=== PATIENT | female | born 2000 ===

== ENCOUNTER 2025-07-09 09:21 | Outpatient (AMB) | payer MEDICAID, SELFPAY ==
--- NOTE | 2025-07-09 09:28 | OBCLNT_ITS ---
Vital Signs 07/09/25 09:40 Height 1.65 m Height Method Stated Weight 67.132 kg Weight Measurement Method Standing Scale BMI 24.6 BP 119/76 Blood Pressure Source Automatic Cuff Blood Pressure Location Left Upper Arm Position Sitting Respiration 16 Pulse 88 Pulse Source Monitor Temp 97.9 F Temp Source Oral Pulse Oximetry (%) 96 Oxygen Delivery Method Room Air Allergies/Home Meds Allergies & Medications Allergies No Known Allergies Allergy (Verified 07/09/25 09:42) Medication Reconciliation vitamin no.76-iron,carbonyl 29 mg iron-folic acid 1 mg tablet (PNV 29- 1) 1 tab PO QDAY 06/10/20 [History Confirmed 07/09/25] Intake Visit Data Collection New Patient or Established: New Patient not seen in past 3 years at [facility] (considered New) Reason for Visit:: INITIAL CARE Seen by Clinical Staff ONLY (RN/MA): No Special Education Paraprofessional Required: No Do You Feel Safe at Home: Yes Authorities Contacted: N/A PCP or OBGYN visit in last 3 months: Yes Hx Now: Yes Are you currently on any form of Control: No Last menstrual period: 12/03/24 Pain Present Currently: No Pain Scale Used: Mehta-Cast/Numerical Pain scale:: 0 Smoking Status Smoking Status: Never smoker Questionnaires Covid-19 Vaccine Questionnaire Has patient been vacinated for Covid-19 Have you been vacinated for Covid-19: Yes PHQ-9 PHQ-2 Over the last 2 weeks, how often have you been bothered by any of the following problems? 1. Little interest or pleasure in doing things: not at all 2. Feeling down, depressed, or hopeless: not at all Total score: 0 PHQ-9 3. Trouble falling or staying asleep, or sleeping too much: Not at all 4. Feeling tired or having little energy: Not at all 5. Poor appetite or overeating: Not at all 6. Feeling bad about yourself - or that you are a failure or have let yourself or your family down: Not at all 7. Trouble concentrating on things, such as reading the newspaper or watching television: Not at all 8. Moving or speaking so slowly that other people could have noticed? - Or the opposite - being so fidgety or restless that you have been moving around a lot more than usual: not at all 9. Thoughts that you would be better off or of hurting yourself in some way: Not at all Total score: 0 Source: Developed by Drs. Hubert Medina, Elvira Forbes, Arsenio Robles and colleagues, with an educational loyd from [employer]. Depression screen completed yes Social History Living Situation History Marital Status: Single Lives With: Family Housing: House Tobacco History Smoking Status: Never smoker Second Hand Smoke Exposure: No Alcohol History Alcohol Intake: Former Alcohol Intake Frequency: holidays/special occasions only Domestic Abuse History Do You Feel Safe at Home: Yes History of Present Illness HPI Narrative 24-year-old 2 para 1 for OBI. Patient has had several ultrasounds in [place] otherwise no care. Her last period December 05, 2024. This gives due date September 11, 2025. Patient reports her dates. Good movement. Denies leaking, bleeding, contractions, patient has had no problems with the . She denies any existence of chronic illness. Denies any surgeries. Denies social habits. She had her first baby in 2019 a little girl normal no problems. 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 Patient is very happy about the . She has had a couple ultrasounds in [place] otherwise no care. Denies leaking, bleeding, contractions. Reports good movement. She has had no problems with . Her the father of the baby lives in [place] Schedule maternal- medicine appointment. OB panel with third trimester labs. NIPT. Discussed labor precautions. Increase fluids. Continue prenatals. And return in 2 weeks for OB check. Tdap today Menstrual History Menstrual reliability: definite Flow: normal Menstrual regularity: regular Monthly: Yes Age at menarche: 9 On control pills at conception: No Associated symptoms (LMP): Reports fatigue and breast tenderness OB History : 2 Para: 1 # of Living Children: 1 Delivery History 1st : Child's name: ZOLTAN date: 08/02/20 sex: female Gestational age at delivery (weeks): 40 Delivery type: vaginal Delivery complications: NONE History of depression before or after : No Infection History & Risk Evaluation History of STDs: none Genetic Screening & History Genetic Screening/Teratology Counseling - Includes patient, baby's father, or anyone in either family with: 1. Patient's age 35 years or older as of estimated date of delivery: No 2. Thalassemia (Belarusian, Algerian, Mediterranean, or Background); MCV less than 80: No 3. Neural Tube Defect (Meningomyelocele, Spina Bifida, or Anencephaly): No 4. Congenital Heart Defect: No 5. Down Syndrome: No 6. Gab-Sachs (Ashkenazi Catholic, Cajun, Arabic [place]kn[place]): No 7. Zully Disease (Ashkenazi Catholic): No 8. Familial Dysautonomia (Ashkenazi Catholic): No 9. Sickle Cell Disease or Trait (): No 10. Hemophilia or other blood disorders: No 11. Muscular Dystrophy: No 12. Cystic Fibrosis: No 13. Hart's Chorea: No 14. Mental Retardation/Autism: No 15. Other inherited genetic or chromosomal disorder: No 16. Maternal Metabolic Disorder (EG,TYPE 1 Diabetes, PKU): No 17. Patient or baby's father had a child with defects not listed above: No 18. Recurrent loss or a stillbirth: No 19. Medications (including supplements, vitamins, herbs or otc drugs)/illicit/recreational drugs/alcohol since last menstrual period: No 20. Any other: No Infection History 1. Live with someone with TB or exposed to TB: No 2. Rash or viral illness since last menstrual period: No 3. Hepatitis B,C: No Other (see comments) Source: [employer] Review of Systems Review of Systems Systems Reviewed: All systems reviewed, normal except as documented Constitutional Constitutional: Reports fatigue Endocrine Endocrine: Reports fatigue Exam General Limitations: no limitations General Appearance: alert, in no apparent distress, comfortable, cooperative, healthy appearing, well developed and well groomed Head Head exam: atraumatic, normocephalic and normal inspection Resp Respiratory exam: Present normal lung sounds bilaterally Card Cardiovascular exam: Present regular rate, normal rhythm and normal heart sounds Abdominal Abdominal exam: Present soft and normal bowel sounds Extremities Extremities exam: Present normal inspection and full ROM Psych Psychiatric exam: Present normal affect and normal mood Office Procedures OB Clinic LOC & Office Proc's Nursing/Assessment Patient Status: Established Patient OB Clinic Nursing Assessment: Medication Reconciliation, Update PMH in EMR and Vital Signs OB Clinic Coordination of Care: Complex Care and Chronic Disease 1-5, Consent,records obtained, informed consent, Education Simp Pt/Fam, 1 Ins Authorization, Lab and Imaging orders, Results/Orders obtained and Staff clarify orders Special Needs: Heart tones Established Patient Charge Established Patient Point Assignment: 150 Established Patient Point Charge: EP Level 4 (120-155) Immunizations diphth,pertus(acell),tetanus 2.5 Lf unit-8 mcg-5 Lf/0.5mL IM syringe Performing Provider: Kasandra Zamarripa CNM Performing Location: [facility] Administered by: Tashia Hou MA on 07/09/25 10:26 Dose Route Admin Location Dispensed Lot Number Expiration Date Pack age [facility] Litigation Associate 0.5 mL IM Left Deltoid 0.5 mL [id number] 08/29/27 [id number] No [employer] VIS Given Date VIS Provided VIS Publication Date 07/09/25 Single Vaccine 25 Eligibility Eligibility Date Funding Source Public [facility] Assessment & Plan Diagnosis / Problem List (1) Encounter for supervision of high risk in third trimester, antepartum: Status: Acute Plan OB panel with 1 hour GTT and NIPT and carrier screens. Schedule maternal- medicine sono. Discussed labor precautions continue vitamins. Return in 2 weeks OB check. Tdap Additional Plan Follow Up: 2 Weeks (obc)
[2025-07-09 09:40] VITALS: BP 119/76; PULSE 88; RESP 16; TEMP 36.6; O2SAT 96; BMI 24.6
== END 2025-07-09 10:13 | disposition home or self-care (01) ==
LOC: HODSOBC 09:21
PROVIDERS: PCP Obstetrics & Gynecology; Referring Provider Obstetrics & Gynecology; Supervising Provider Advanced Practice Midwife; Visit Provider Advanced Practice Midwife
DX: O09.93 Supervision of high risk pregnancy, unspecified, third trimester (principal); Z3A.30 30 weeks gestation of pregnancy; Z23 Encounter for immunization
CPT/HCPCS: 90471; 90715; 99214; G0463

== ENCOUNTER 2025-07-23 10:17 | Outpatient (AMB) | payer MEDICAID, SELFPAY ==
[2025-07-23 10:30] VITALS: BP 117/72; PULSE 91; RESP 18; TEMP 36.5; O2SAT 97; BMI 24.7
--- NOTE | 2025-07-23 10:30 | OBCLNT_ITS ---
Vital Signs 07/23/25 10:30 Height 1.65 m Height Method Measured Weight 67.188 kg Weight Measurement Method Standing Scale BMI 24.7 BP 117/72 Blood Pressure Source Automatic Cuff Blood Pressure Location Right Upper Arm Position Sitting Respiration 18 Pulse 91 Pulse Source Monitor Temp 97.7 F Temp Source Temporal Artery Scan Pulse Oximetry (%) 97 Oxygen Delivery Method Room Air Allergies/Home Meds Allergies & Medications Allergies No Known Allergies Allergy (Verified 07/09/25 09:42) Intake Visit Data Collection New Patient or Established: Established Patient (seen at [facility] within 3 years) Reason for Visit:: OBC FOLLOW UP Do You Feel Safe at Home: Yes Authorities Contacted: N/A PCP or OBGYN visit in last 3 months: Yes Date of Last PCP or OBGYN visit: 07/09/25 Hx Now: Yes Are you currently on any form of Control: No Pain Present Currently: No Smoking Status Smoking Status: Never smoker Questionnaires PHQ-9 PHQ-2 Over the last 2 weeks, how often have you been bothered by any of the following problems? 1. Little interest or pleasure in doing things: not at all PHQ-9 8. Moving or speaking so slowly that other people could have noticed? - Or the opposite - being so fidgety or restless that you have been moving around a lot more than usual: not at all Source: Developed by Drs. Hubert Medina, Elvira Forbes, Arsenio Robles and colleagues, with an educational loyd from [employer]. 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 Patient is very happy about the . She has had a couple ultrasounds in [place] otherwise no care. Denies leaking, bleeding, contractions. Reports good movement. She has had no problems with . Her the father of the baby lives in [place] Schedule maternal- medicine appointment. OB panel with third trimester labs. NIPT. Discussed labor precautions. Increase fluids. Continue prenatals. And return in 2 weeks for OB check. Tdap today 07/23/25 -?-?-?-?-?-?-?-?-?-?-?-?- 32w 6d 67.188 kg 117/72 absent cephalic 32 135 active No OB complaints, fetus active, denies leaking, bleeding,or UC FKC bid, discuss labs. discuss PTL precaution. continue PNV. RTC 2 week OBC. MFM appointment in 1 week, order iron for patient JHONNY Calculator Estimated Delivery Date Method Current WG Current Estimate 09/11/25 LMP (Certain) 32w 6d Other Estimates 09/09/25 Ultrasound #1 33w 1d Notes Visit Date: 07/23/25 Last Updated by: Kasandra Zamarripa CNM OB panel: A+,abs-, rpr;;nr, rub Imm, HBSAG-, HIV-, HC- GC/CT-, 08/30, 226, UA-. NIPT/CF/SMA pending Visit Date: 07/09/25 Last Updated by: Kasandra Zamarripa CNM 24 yo . lmp: 12/05/24. EDC: 09/11/25. 1st sono: 02/02/25: 8w5. EDC: 09/12/25 Office Procedures OB Clinic LOC & Office Proc's Nursing/Assessment Patient Status: Established Patient OB Clinic Nursing Assessment: Medication Reconciliation, Update PMH in EMR and Vital Signs OB Clinic Coordination of Care: Complex Care and Chronic Disease 1-5, Education Complex Pt/Fam, Consent,records obtained, informed consent, Lab and Imaging orders and Results/Orders obtained Special Needs: Heart tones Established Patient Charge Established Patient Point Assignment: 130 Established Patient Point Charge: EP Level 4 (120-155) Assessment & Plan Diagnosis / Problem List (1) Encounter for supervision of high risk in third trimester, antepartum: Status: Acute Plan MFM sono 1 week, discuss PTL precaution, fkc bid. continue PNV. discuss ER precaution, rtc 1 week obc Additional Plan Follow Up: 1 Week (obc)
== END 2025-07-23 10:54 | disposition home or self-care (01) ==
LOC: HODSOBC 10:17
PROVIDERS: Supervising Provider Advanced Practice Midwife; Visit Provider Advanced Practice Midwife
DX: O09.93 Supervision of high risk pregnancy, unspecified, third trimester (principal); Z3A.32 32 weeks gestation of pregnancy
CPT/HCPCS: 99214; G0463

== ENCOUNTER 2025-08-07 11:08 | Outpatient (AMB) | payer MEDICAID, SELFPAY ==
[2025-08-07 11:17] VITALS: BP 113/68; PULSE 89; RESP 16; TEMP 36.6; O2SAT 98; BMI 24.3
--- NOTE | 2025-08-07 11:17 | AMB.OBVISIT ---
Vital Signs 08/07/25 11:17 Height 1.65 m Height Method Stated Weight 66.338 kg Weight Measurement Method Standing Scale BMI 24.3 BP 113/68 Blood Pressure Source Automatic Cuff Blood Pressure Location Left Upper Arm Position Sitting Respiration 16 Pulse 89 Pulse Source Monitor Temp 97.8 F Temp Source Oral Pulse Oximetry (%) 98 Oxygen Delivery Method Room Air Allergies/Home Meds Allergies & Medications Allergies No Known Allergies Allergy (Verified 08/07/25 11:21) Medication Reconciliation vitamin no.76-iron,carbonyl 29 mg iron-folic acid 1 mg tablet (PNV 29-1) 1 tab PO QDAY 06/10/20 [History Confirmed 08/07/25] ferrous sulfate 325 mg (65 mg iron) tablet 325 mg PO BID #60 tabs 07/23/25 [Rx Confirmed 08/07/25] clotrimazole 2 % vaginal cream (Gyne-Lotrimin) 1 appful vaginal QHS 7 days #21 grams 08/07/25 [Rx] fluconazole 150 mg tablet 150 mg PO QDAY 3 days #3 tabs 08/07/25 [Rx] Intake Visit Data Collection New Patient or Established: Established Patient (seen at [facility] within 3 years) Reason for Visit:: CARE Seen by Clinical Staff ONLY (RN/MA): No Environmental Services Tech Required: No Do You Feel Safe at Home: Yes Authorities Contacted: N/A PCP or OBGYN visit in last 3 months: Yes Hx Now: Yes Are you currently on any form of Control: No Pain Present Currently: No Pain Scale Used: Mehta-Cast/Numerical Pain scale:: 0 Smoking Status Smoking Status: Never smoker Questionnaires Covid-19 Vaccine Questionnaire Has patient been vacinated for Covid-19 Have you been vacinated for Covid-19: No PHQ-9 PHQ-2 Over the last 2 weeks, how often have you been bothered by any of the following problems? 1. Little interest or pleasure in doing things: not at all 2. Feeling down, depressed, or hopeless: not at all Total score: 0 PHQ-9 3. Trouble falling or staying asleep, or sleeping too much: Not at all 4. Feeling tired or having little energy: Not at all 5. Poor appetite or overeating: Not at all 6. Feeling bad about yourself - or that you are a failure or have let yourself or your family down: Not at all 7. Trouble concentrating on things, such as reading the newspaper or watching television: Not at all 8. Moving or speaking so slowly that other people could have noticed? - Or the opposite - being so fidgety or restless that you have been moving around a lot more than usual: not at all 9. Thoughts that you would be better off or of hurting yourself in some way: Not at all Total score: 0 Source: Developed by Drs. Hubert Medina, Elvira Forbes, Arsenio Robles and colleagues, with an educational loyd from [employer]. 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 Patient is very happy about the . She has had a couple ultrasounds in [place] otherwise no care. Denies leaking, bleeding, contractions. Reports good movement. She has had no problems with . Her the father of the baby lives in [place] Schedule maternal- medicine appointment. OB panel with third trimester labs. NIPT. Discussed labor precautions. Increase fluids. Continue prenatals. And return in 2 weeks for OB check. Tdap today 07/23/25 <del>?</del> 32w 6d 67.188 kg 117/72 absent cephalic 32 135 active No OB complaints, fetus active, denies leaking, bleeding,or UC FKC bid, discuss labs. discuss PTL precaution. continue PNV. RTC 2 week OBC. MFM appointment in 1 week, order iron for patient 08/07/25 <del>?</del> 35w 0d 66.338 kg 113/68 absent cephalic 35 135 active Reports good movement. Denies leaking, bleeding, contractions. Perineal area is red and the vagina was red and white clumpy discharge. GBS culture today. Diflucan 151 p.o. Q3. 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 Discussed labor precautions and kick count. And we discussed membrane sweeping at 39 weeks return in a week for OB check JHONNY Calculator Estimated Delivery Date Method Current WG Current Estimate 09/11/25 LMP (Certain) 35w 0d Other Estimates 09/09/25 Ultrasound #1 35w 2d Notes Visit Date: 07/23/25 Last Updated by: Kasandra Zamarripa CNM OB panel: A+,abs-, rpr;;nr, rub Imm, HBSAG-, HIV-, HC- GC/CT-, 08/30, 226, UA-. NIPT/CF/SMA pending Visit Date: 07/09/25 Last Updated by: Kasandra Zamarripa CNM 24 yo . lmp: 12/05/24. EDC: 09/11/25. 1st sono: 02/02/25: 8w5. EDC: 09/12/25 Office Procedures OBC Clinic LOC & Office Proc's Nursing/Assessment Patient Status: Established Patient OB Clinic Nursing Assessment: Medication Reconciliation, Update PMH in EMR and Vital Signs OB Clinic Coordination of Care: Complex Care and Chronic Disease 1-5, Consent,records obtained, informed consent, Education Simp Pt/Fam, 1 Ins Authorization, Lab and Imaging orders, Results/Orders obtained and Staff clarify orders Special Needs: Heart tones Miscellaneous Interventions: Culture Specimen Collection Established Patient Charge Established Patient Point Assignment: 165 Established Patient Point Charge: EP Level 5 (160-above) Assessment & Plan Diagnosis / Problem List (1) Encounter for supervision of high risk in third trimester, antepartum: Status: Acute (2) Vaginitis affecting in third trimester, antepartum: Status: Acute Plan 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 I ordered Diflucan 150 p.o. x 3. GBS today. Comfort measures for vaginitis. Discussed kick count twice a day. We discussed membrane sweep at 39 weeks. Increase fluids. Return in a week OB check Additional Plan Follow Up: 1 Week (obc)
== END 2025-08-07 11:40 | disposition home or self-care (01) ==
LOC: HODSOBC 11:08
PROVIDERS: Supervising Provider Advanced Practice Midwife; Visit Provider Advanced Practice Midwife
DX: O09.893 Supervision of other high risk pregnancies, third trimester (principal); O23.593 Infection of other part of genital tract in pregnancy, third trimester; N76.0 Acute vaginitis; Z3A.35 35 weeks gestation of pregnancy
CPT/HCPCS: 99215; G0463

== ENCOUNTER 2025-08-13 13:02 | Outpatient (AMB) | payer MEDICAID, SELFPAY ==
[2025-08-13 13:15] VITALS: BP 107/70; PULSE 87; RESP 18; TEMP 36.2; O2SAT 98; BMI 24.5
--- NOTE | 2025-08-13 13:15 | OBCLNT_ITS ---
Vital Signs 08/13/25 13:15 Height 1.65 m Height Method Stated Weight 66.848 kg Weight Measurement Method Standing Scale BMI 24.5 BP 107/70 Blood Pressure Source Automatic Cuff Blood Pressure Location Left Upper Arm Position Sitting Respiration 18 Pulse 87 Pulse Source Monitor Temp 97.2 F Temp Source Oral Pulse Oximetry (%) 98 Oxygen Delivery Method Room Air Allergies/Home Meds Allergies & Medications Allergies No Known Allergies Allergy (Verified 08/13/25 13:16) Medication Reconciliation vitamin no.76-iron,carbonyl 29 mg iron-folic acid 1 mg tablet (PNV 29- 1) 1 tab PO QDAY 06/10/20 [History Confirmed 08/13/25] ferrous sulfate 325 mg (65 mg iron) tablet 325 mg PO BID #60 tabs 07/23/25 [Rx Confirmed 08/13/25] clotrimazole 2 % vaginal cream (Gyne-Lotrimin) 1 appful vaginal QHS 7 days #21 grams 08/07/25 [Rx Confirmed 08/13/25] Intake Visit Data Collection New Patient or Established: Established Patient (seen at [facility] within 3 years) Reason for Visit:: OBC Seen by Clinical Staff ONLY (RN/MA): No Bag Filler Required: No Do You Feel Safe at Home: Yes Authorities Contacted: N/A PCP or OBGYN visit in last 3 months: Yes Date of Last PCP or OBGYN visit: 08/07/25 Hx Now: Yes Are you currently on any form of Control: No Pain Present Currently: No Pain Scale Used: Mehta-Cast/Numerical Pain scale:: 0 Smoking Status Smoking Status: Never smoker Questionnaires Covid-19 Vaccine Questionnaire Has patient been vacinated for Covid-19 Have you been vacinated for Covid-19: Yes PHQ-9 PHQ-2 Over the last 2 weeks, how often have you been bothered by any of the following problems? 1. Little interest or pleasure in doing things: not at all 2. Feeling down, depressed, or hopeless: not at all Total score: 0 PHQ-9 3. Trouble falling or staying asleep, or sleeping too much: Not at all 4. Feeling tired or having little energy: Not at all 5. Poor appetite or overeating: Not at all 6. Feeling bad about yourself - or that you are a failure or have let yourself or your family down: Not at all 7. Trouble concentrating on things, such as reading the newspaper or watching television: Not at all 8. Moving or speaking so slowly that other people could have noticed? - Or the opposite - being so fidgety or restless that you have been moving around a lot more than usual: not at all 9. Thoughts that you would be better off or of hurting yourself in some way: Not at all Total score: 0 If you checked off any problems, how difficult have these problems made it for you to do your work, take care of things at home, or get along with other people?: not difficult at all Source: Developed by Drs. Hubert Medina, Elvira Forbes, Arsenio Robles and colleagues, with an educational loyd from [employer]. 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 Patient is very happy about the . She has had a couple ultrasounds in [place] otherwise no care. Denies leaking, bleeding, contractions. Reports good movement. She has had no problems with . Her the father of the baby lives in [place] Schedule maternal- medicine appointment. OB panel with third trimester labs. NIPT. Discussed labor precautions. Increase fluids. Continue prenatals. And return in 2 weeks for OB check. Tdap today 07/23/25 -?-?-?-?-?-?-?-?-?-?-?-?- 32w 6d 67.188 kg 117/72 absent cephalic 32 135 active No OB complaints, fetus active, denies leaking, bleeding,or UC FKC bid, discuss labs. discuss PTL precaution. continue PNV. RTC 2 week OBC. MFM appointment in 1 week, order iron for patient 08/07/25 -?-?-?-?-?-?-?-?-?-?-?-?- 35w 0d 66.338 kg 113/68 absent cephalic 35 135 active Reports good movement. Denies leaking, bleeding, contractions. Perineal area is red and the vagina was red and white clumpy discharge. GBS culture today. Diflucan 151 p.o. Q3. CERTIFIED HISTOLOGIC TECHNICIAN Lotrimin x 7 to the external labia. Discussed labor precautions and kick count. And we discussed membrane sweeping at 39 weeks return in a week for OB check 08/13/25 -?-?-?-?-?-?-?-?-?-?-?-?- 35w 6d 66.848 kg 107/70 absent cephalic 35 125 active Reports good movement. Denies leaking, bleeding, contractions. This kick count twice a day. Reviewed labor precautions. Continue prenatals. Discussed GBS. Return in a week OB check JHONNY Calculator Estimated Delivery Date Method Current WG Current Estimate 09/11/25 LMP (Certain) 35w 6d Other Estimates 09/09/25 Ultrasound #1 36w 1d 09/11/25 Ultrasound #2 35w 6d 09/11/25 Manual 35w 6d final jhonny: 08/31 12/25. efw 44 % Notes Visit Date: 08/13/25 Last Updated by: Kasandra Zamarripa CNM 08/13: GBS- Visit Date: 07/23/25 Last Updated by: Kasandra Zamarripa CNM OB panel: A+,abs-, rpr;;nr, rub Imm, HBSAG-, HIV-, HC- GC/CT-, 08/30, 226, UA-. NIPT/CF/SMA pending Visit Date: 07/09/25 Last Updated by: Kasandra Zamarripa CNM 24 yo . lmp: 12/05/24. EDC: 09/11/25. 1st sono: 02/02/25: 8w5. EDC: 09/12/25 Office Procedures OBC Clinic LOC & Office Proc's Nursing/Assessment Patient Status: Established Patient OB Clinic Nursing Assessment: Medication Reconciliation, Update PMH in EMR and Vital Signs OB Clinic Coordination of Care: Consent,records obtained, informed consent, Education Simp Pt/Fam, Lab and Imaging orders, Results/Orders obtained and Staff clarify orders Special Needs: Heart tones Established Patient Charge Established Patient Point Assignment: 110 Established Patient Point Charge: EP Level 3 (80-115) Assessment & Plan Diagnosis / Problem List (1) Encounter for supervision of high risk in third trimester, antepartum: Status: Acute Plan Discussed kick count twice a day. Discussed labor precautions. Continue prenatals. Return in a week OB check Additional Plan Follow Up: 1 Week (obc)
== END 2025-08-13 13:30 | disposition home or self-care (01) ==
LOC: HODSOBC 13:02
PROVIDERS: Supervising Provider Advanced Practice Midwife; Visit Provider Advanced Practice Midwife
DX: O09.93 Supervision of high risk pregnancy, unspecified, third trimester (principal); Z3A.35 35 weeks gestation of pregnancy
CPT/HCPCS: 99213; G0463

== ENCOUNTER 2025-08-23 13:25 | Outpatient (AMB) | payer MEDICAID, SELFPAY ==
[2025-08-23 13:47] VITALS: BP 113/64; PULSE 95; RESP 18; TEMP 36.2; O2SAT 98; BMI 25.2
--- NOTE | 2025-08-23 13:47 | OBCLNT_ITS ---
Vital Signs 08/23/25 13:47 Height 1.65 m Height Method Stated Weight 68.606 kg Weight Measurement Method Standing Scale BMI 25.2 BP 113/64 Blood Pressure Source Automatic Cuff Blood Pressure Location Left Upper Arm Position Sitting Respiration 18 Pulse 95 Pulse Source Monitor Temp 97.2 F Temp Source Oral Pulse Oximetry (%) 98 Oxygen Delivery Method Room Air Allergies/Home Meds Allergies & Medications Allergies No Known Allergies Allergy (Verified 08/23/25 13:48) Medication Reconciliation vitamin no.76-iron,carbonyl 29 mg iron-folic acid 1 mg tablet (PNV 29- 1) 1 tab PO QDAY 06/10/20 [History Confirmed 08/23/25] ferrous sulfate 325 mg (65 mg iron) tablet 325 mg PO BID #60 tabs 07/23/25 [Rx Confirmed 08/23/25] clotrimazole 2 % vaginal cream (Gyne-Lotrimin) 1 appful vaginal QHS 7 days #21 grams 08/07/25 [Rx Confirmed 08/23/25] Intake Visit Data Collection New Patient or Established: Established Patient (seen at [facility] within 3 years) Reason for Visit:: OBC Seen by Clinical Staff ONLY (RN/MA): No Aircraft Accessories Mechanic Required: No Do You Feel Safe at Home: Yes Authorities Contacted: N/A PCP or OBGYN visit in last 3 months: Yes Date of Last PCP or OBGYN visit: 08/12/25 Hx Now: Yes Are you currently on any form of Control: No Pain Present Currently: No Pain Scale Used: Mehta-Cast/Numerical Pain scale:: 0 Smoking Status Smoking Status: Never smoker Immunizations Flu Vaccine in the Last 12 Months: No Flu Vaccine Exclusion Criteria: Refused by Patient Questionnaires Covid-19 Vaccine Questionnaire Has patient been vacinated for Covid-19 Have you been vacinated for Covid-19: No PHQ-9 PHQ-2 Over the last 2 weeks, how often have you been bothered by any of the following problems? 1. Little interest or pleasure in doing things: not at all 2. Feeling down, depressed, or hopeless: not at all Total score: 0 PHQ-9 3. Trouble falling or staying asleep, or sleeping too much: Not at all 4. Feeling tired or having little energy: Not at all 5. Poor appetite or overeating: Not at all 6. Feeling bad about yourself - or that you are a failure or have let yourself or your family down: Not at all 7. Trouble concentrating on things, such as reading the newspaper or watching television: Not at all 8. Moving or speaking so slowly that other people could have noticed? - Or the opposite - being so fidgety or restless that you have been moving around a lot more than usual: not at all 9. Thoughts that you would be better off or of hurting yourself in some way: Not at all Total score: 0 If you checked off any problems, how difficult have these problems made it for you to do your work, take care of things at home, or get along with other people?: not difficult at all Source: Developed by Drs. Hubert Medina, Elvira Forbes, Arsenio Robles and colleagues, with an educational loyd from [employer]. 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 Patient is very happy about the . She has had a couple ultrasounds in [place] otherwise no care. Denies leaking, bleeding, contractions. Reports good movement. She has had no problems with . Her the father of the baby lives in [place] Schedule maternal- medicine appointment. OB panel with third trimester labs. NIPT. Discussed labor precautions. Increase fluids. Continue prenatals. And return in 2 weeks for OB check. Tdap today 07/23/25 -?-?-?-?-?-?-?-?-?-?-?-?- 32w 6d 67.188 kg 117/72 absent cephalic 32 135 active No OB complaints, fet us active, denies leaking, bleeding,or UC FKC bid, discuss labs. discuss PTL precaution. continue PNV. RTC 2 week OBC. MFM appointment in 1 week, order iron for patient 08/07/25 -?--?-?-?-?-?-?-?-?-?-?-?- 35w 0d 66.338 kg 113/68 absent cephalic 35 135 active Reports good movement. Denies leaking, bleeding, contractions. Perineal area is red and the vagina was red and white clumpy discharge. GBS culture today. Diflucan 151 p.o. Q3. 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 Discussed labor precautions and kick count. And we discussed membrane sweeping at 39 weeks return in a week for OB check 08/13/25 -?-?-?-?-?-?-?-?-?-?-?-?- 35w 6d 66.848 kg 107/70 absent cephalic 35 125 active Reports good movement. Denies leaking, bleeding, contractions. This kick count twice a day. Reviewed labor precautions. Continue prenatals. Discussed GBS. Return in a week OB check 08/23/25 -?-?-?-?-?-?-?-?-?-?-?-?- 37w 2d 68.606 kg 113/64 absent cephalic 36 123 active -3 sve: L/high/ medium. Occasional contraction. Denies leaking or bleeding. Reports good movement Discussed GBS. Labor precautions twice a day. Discussed kick count. Increase fluids continue prenatals return in a week OB check JHONNY Calculator Estimated Delivery Date Method Current WG Current Estimate 09/11/25 LMP (Certain) 37w 2d Other Estimates 09/09/25 Ultrasound #1 37w 4d 09/11/25 Ultrasound #2 37w 2d 09/11/25 Manual 37w 2d final jhonny: 08/31 12/25. efw 44 % Notes Visit Date: 08/13/25 Last Updated by: Kasandra Zamarripa CNM 08/13: GBS- Visit Date: 07/23/25 Last Updated by: Kasandra Zamarripa CNM OB panel: A+,abs-, rpr;;nr, rub Imm, HBSAG-, HIV-, HC- GC/CT-, 08/30, 226, UA-. NIPT/CF/SMA pending Visit Date: 07/09/25 Last Updated by: Kasandra Zamarripa CNM 24 yo . lmp: 12/05/24. EDC: 09/11/25. 1st sono: 02/02/25: 8w5. EDC: 09/12/25 Office Procedures OBC Clinic LOC & Office Proc's Nursing/Assessment Patient Status: Established Patient OB Clinic Nursing Assessment: Medication Reconciliation, Update PMH in EMR and Vital Signs OB Clinic Coordination of Care: Consent,records obtained, informed consent, Lab and Imaging orders, Results/Orders obtained and Staff clarify orders Special Needs: Heart tones Established Patient Charge Established Patient Point Assignment: 95 Established Patient Point Charge: EP Level 3 (80-115) Assessment & Plan Diagnosis / Problem List (1) Encounter for supervision of high risk in third trimester, antepartum: Status: Acute Plan Discussed labor precautions. Kick count twice a day. Increase fluids. Discussed danger signs and symptoms. Return in week OB check Additional Plan Follow Up: 1 Week (obc)
== END 2025-08-23 14:12 | disposition home or self-care (01) ==
LOC: HODSOBC 13:25
PROVIDERS: Supervising Provider Advanced Practice Midwife; Visit Provider Advanced Practice Midwife
DX: O09.93 Supervision of high risk pregnancy, unspecified, third trimester (principal); Z3A.37 37 weeks gestation of pregnancy
CPT/HCPCS: 99213; G0463

== ENCOUNTER 2025-08-30 13:13 | Outpatient (AMB) | payer MEDICAID, SELFPAY ==
[2025-08-30 13:20] VITALS: BP 117/75; PULSE 89; RESP 18; TEMP 36.7; O2SAT 896; BMI 25.2
--- NOTE | 2025-08-30 13:20 | OBCLNT_ITS ---
Vital Signs 08/30/25 13:20 Height 1.65 m Height Method Stated Weight 68.606 kg Weight Measurement Method Standing Scale BMI 25.2 BP 117/75 Blood Pressure Source Automatic Cuff Blood Pressure Location Right Upper Arm Position Sitting Respiration 18 Pulse 89 Pulse Source Monitor Temp 98.1 F Temp Source Temporal Artery Scan Pulse Oximetry (%) 896 H Oxygen Delivery Method Room Air Allergies/Home Meds Allergies & Medications Allergies No Known Allergies Allergy (Verified 08/30/25 13:21) Intake Visit Data Collection New Patient or Established: Established Patient (seen at [facility] within 3 years) Reason for Visit:: OBC Seen by Clinical Staff ONLY (RN/MA): No 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 Required: No Do You Feel Safe at Home: Yes Authorities Contacted: N/A PCP or OBGYN visit in last 3 months: Yes Date of Last PCP or OBGYN visit: 08/23/25 Hx Now: Yes Are you currently on any form of Control: No Pain Present Currently: No Pain Scale Used: Mehta-Cast/Numerical Pain scale:: 0 Smoking Status Smoking Status: Never smoker Immunizations Flu Vaccine in the Last 12 Months: No Flu Vaccine Exclusion Criteria: No Exclusion Criteria Questionnaires Covid-19 Vaccine Questionnaire Has patient been vacinated for Covid-19 Have you been vacinated for Covid-19: No PHQ-9 PHQ-2 Over the last 2 weeks, how often have you been bothered by any of the following problems? 1. Little interest or pleasure in doing things: not at all 2. Feeling down, depressed, or hopeless: not at all Total score: 0 PHQ-9 3. Trouble falling or staying asleep, or sleeping too much: Not at all 4. Feeling tired or having little energy: Not at all 5. Poor appetite or overeating: Not at all 6. Feeling bad about yourself - or that you are a failure or have let yourself or your family down: Not at all 7. Trouble concentrating on things, such as reading the newspaper or watching television: Not at all 8. Moving or speaking so slowly that other people could have noticed? - Or the opposite - being so fidgety or restless that you have been moving around a lot more than usual: not at all 9. Thoughts that you would be better off or of hurting yourself in some way: Not at all If you checked off any problems, how difficult have these problems made it for you to do your work, take care of things at home, or get along with other people?: not difficult at all Source: Developed by Drs. Hubert Medina, Elvira Forbes, Arsenio Robles and colleagues, with an educational loyd from [email or web address]. 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 Patient is very happy about the . She has had a couple ultrasounds in [place] otherwise no care. Denies leaking, bleeding, contractions. Reports good movement. She has had no problems with . Her the father of the baby lives in [place] Schedule maternal- medicine appointment. OB panel with third trimester labs. NIPT. Discussed labor precautions. Increase fluids. Continue prenatals. And return in 2 weeks for OB check. Tdap today 07/23/25 -?-?-?-?-?-?-?-?-?-?-?-?- 32w 6d 67.188 kg 117/72 absent cephalic 32 135 active No OB complaints, fetus active, denies leaking, bleeding,or UC FKC bid, discuss labs. discuss PTL precaution. continue PNV. RTC 2 week OBC. MFM appointment in 1 week, order iron for patient 08/07/25 -?-?-?-?-?-?-?-?-?-?-?-?- 35w 0d 66.338 kg 113/68 absent cephalic 35 135 active Reports good movement. Denies leaking, bleeding, contractions. Perineal area is red and the vagina was red and white clumpy discharge. GBS culture today. Diflucan 151 p.o. Q3. 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 Discussed labor precautions and kick count. And we discussed membrane sweeping at 39 weeks return in a week for OB check 08/13/25 -?-?-?-?-?-?-?-?-?-?-?-?- 35w 6d 66.848 kg 107/70 absent cephalic 35 125 active Reports good movement. Denies leaking, bleeding, contractions. This kick count twice a day. Reviewed labor precautions. Continue prenatals. Discussed GBS. Return in a week OB check 08/23/25 -?-?-?-?-?-?-?-?-?-?-?-?- 37w 2d 68.606 kg 113/64 absent cephalic 36 123 active -3 sve: L/high/ medium. Occasional contraction. Denies leaking or bleeding. Reports good movement Discussed GBS. Labor precautions twice a day. Discussed kick count. Increase fluids continue prenatals return in a week OB check 08/30/25 -?-?-?-?-?-?-?-?-?-?-?-?- 38w 2d 68.606 kg 117/75 occasional cephalic 37 135 active 1 -3 L/high/thick, soft. Reports good movement. Denies leaking, bleeding. Occasional contraction. And increased pressure Discussed labor precautions. Kick count twice a day. Reviewed signs and symptoms of labor and ER precautions. Return in a week OB check JHONNY Calculator Estimated Delivery Date Method Current WG Current Estimate 09/11/25 LMP (Certain) 38w 2d Other Estimates 09/09/25 Ultrasound #1 38w 4d 09/11/25 Ultrasound #2 38w 2d 09/11/25 Manual 38w 2d final jhonny: 08/31 12/25. efw 44 % Notes Visit Date: 08/13/25 Last Updated by: Kasandra Zamarripa CNM 08/13: GBS- Visit Date: 07/23/25 Last Updated by: Kasandra Zamarripa CNM OB panel: A+,abs-, rpr;;nr, rub Imm, HBSAG-, HIV-, HC- GC/CT-, 08/30, 226, UA-. NIPT/CF/SMA pending Visit Date: 07/09/25 Last Updated by: Kasandra Zamarripa CNM 24 yo . lmp: 12/05/24. EDC: 09/11/25. 1st sono: 02/02/25: 8w5. EDC: 09/12/25 Office Procedures OBC Clinic LOC & Office Proc's Nursing/Assessment Patient Status: Established Patient OB Clinic Nursing Assessment: Update PMH in EMR and Vital Signs OB Clinic Coordination of Care: Complex Care and Chronic Disease 1-5, Education Complex Pt/Fam and Consent,records obtained, informed consent Special Needs: Heart tones Established Patient Charge Established Patient Point Assignment: 105 Established Patient Point Charge: EP Level 3 (80-115) Assessment & Plan Diagnosis / Problem List (1) Vaginitis affecting in third trimester, antepartum: Status: Acute Plan Return in a week OB check. Discussed labor precautions. Kick count. Continue prenatals. Additional Plan Follow Up: 1 Week (obc)
== END 2025-08-30 13:30 | disposition home or self-care (01) ==
LOC: HODSOBC 13:13
PROVIDERS: Supervising Provider Advanced Practice Midwife; Visit Provider Advanced Practice Midwife
DX: O09.893 Supervision of other high risk pregnancies, third trimester (principal); O23.593 Infection of other part of genital tract in pregnancy, third trimester; N76.0 Acute vaginitis; Z3A.38 38 weeks gestation of pregnancy
CPT/HCPCS: 99213; G0463

== ENCOUNTER 2025-09-07 23:08 | Inpatient (IN) | payer MEDICAID, SELFPAY ==
[2025-09-07 23:17] VITALS: BP 128/61; PULSE 86
[2025-09-07 23:45] VITALS: BP 128/61; PULSE 86; RESP 16; TEMP 36.7
[2025-09-08] VITALS (125 sets, daily range): BP systolic 92–142; BP diastolic 49–83; PULSE 66–129; RESP 16–98; TEMP 36.5–37; O2SAT 89–100; BMI 25.8
[2025-09-08] MEDS: RINGERS LACTATED 1000 ML 1,000 ML 125 ML IV ×2 (00:08→06:09)
[2025-09-08 00:34] LABS: Basophils # (Auto) 0.1 Thou/mm3 (0.0-0.2); Basophils % (Auto) 1 % (0-2.5); Eosinophils # (Auto) 0.1 Thou/mm3 (0.0-0.5); Eosinophils % (Auto) 1 % (0-10); Hematocrit 33.0 % (36.0-46.0); Hemoglobin 11.1 g/dL (12.0-16.0); Immature Granulocytes Auto 0.12 Thou/mm3 (0.00-0.00); Lymphocytes # (Auto) 1.5 Thou/mm3 (1.0-4.8); Lymphocytes % (Auto) 10 % (10-50); Mean Corpuscular HGB Conc 33.6 g/dl (31.0-37.0); Mean Corpuscular Hemoglobin 28.0 pg (25.0-35.0); Mean Corpuscular Volume 83 fL (80-100); Monocytes # (Auto) 1.0 Thou/mm3 (0.0-0.8); Monocytes % (Auto) 6 % (0-12); Neutrophils # (Auto) 12.5 Thou/mm3 (1.8-7.7); Neutrophils % (Auto) 81 % (37-80); Nucleated Red Blood Cell # 0.00 Thou/mm3 (0.00-0.00); Nucleated Red Blood Cell % 0 /100 WBC (0); Platelet Count 213 Thou/mm3 (140-440); RDW Standard Deviation 45.1 fL (36.4-46.3); Red Blood Count 3.96 Miln/mm3 (4.00-5.20); White Blood Count 15.3 Thou/mm3 (3.6-11.0)
[2025-09-08 01:16] LABS: Syphilis Nonreactive (Nonreactive)
--- NOTE | 2025-09-08 07:41 | ESHP_ITS ---
Documentation for date of: 09/08/25 OB Labor/Induct. HPI History of Present Illness Chief complaint: labor : 2 Para: 1 Term pregnancies: 1 pregnancies: 0 Living children: 1 History of Abortions: Spontaneous and Elective: 0 History of Vaginal deliveries: 1 History of sections: No History of : No Date of last menstrual period: 12/03/24 JHONNY: 09/11/25 Gestational Age (weeks): 39 Gestational Age (days): 4 Gestational age based on last menstrual period: 39 History of present illness: 25 2 para 1 complains of contractions since 1600. Denies leaking or bleeding. Reports good . Patient had 1 for care. At [facility]. First ultrasound of send 8 weeks. PE December 05, 2024. Next due date 09/2025. Social habits. Surgery. Denies chronic illness. Patient is A+, risk negative, RPR reactive, hepatitis B negative, hep C negative, HIV negative current. GBS negative. NIPT and carrier screen. History of Present Dating criteria: LMP confirmed by 1st trimester US Adequate Care: Yes Ultrasounds: normal 1st trimester US and normal mid trimester US Obstetrical complications: none Medical complications: none Labs Labs: Positive: Rubella Titre, Negative: RPR, Hepatitis B, HIV, Chlamydia, Gonorrhea and Group Beta Strep and Unknown: Herpes Type 1, Herpes Type 2 and Covid-19 Review of Systems Review of Systems Systems Reviewed: All systems reviewed, normal except as documented Past Medical History Surgical History SURGICAL: Negative Section Meds Home Medications and Allergies Home Medications ?Medication ?Instructions ?Recorded ?Confirmed ?Type No Known Home Medications 09/06/2507/25 History Allergies Allergy/AdvReac Type Severity Reaction Status Date / Time No Known Allergies Allergy Verified 09/08/25 00:12 OB Exam Physical Exam Vital signs: Temp Pulse Resp BP Pulse Ox 98.1 F 105 H 16 124/75 99 09/08/25 06:00 09/08/25 07:00 09/08/25 00:48 09/08/25 07:00 09/08/25 07:38 Narrative: Normal heart rate. lungs clear, no wheezes. Normal heart rate and rythm. gravid abdomen. efw: 7-8. exam: 4/60/-2.. vertex, BOW intact. . heart rate, lungs clear. uc q 3-4, -2 Detailed Labor and Delivery Exam Dilation (cm): 4 Effacement (%): 60 Cervix position: mid station: -2 Consistency: soft Presentation: Vertex Cervical ripeness score: 8 Membranes: intact monitor accelerations: 15x15 monitor decelerations: None CHCF variability: Moderate (11-25) Contraction frequency (min): 3-4 Contraction duration (sec): mod Tachysystole: No Contraction intensity: Moderate OB Results Labs 09/08/25 00:08 Labs: Short CBC 09/08/25 Range/Units 00:08 WBC 15.3 H (3.6-11.0) Thou/mm3 Hgb 11.1 L (12.0-16.0) g/dL Hct 33.0 L (36.0-46.0) % Plt Count 213 (140-440) Thou/mm3 OB Assessment & Plan Additional Plan Induction method: none Plan: anticipate NVD and consult MD cr
[2025-09-08] MEDS: MINERAL OIL 30 ML UDC TOP (08:59)
[2025-09-08] MEDS: OXYTOCIN in NS 20 units 20 UNIT/1,000 ML BAG 125 UNIT IV (09:01)
--- NOTE | 2025-09-08 09:29 | OBDSUM_ITS ---
Data ([place]) Data Hx Section: No : 2 Term: 1 : 0 Livin Abortions: Spontaneous & Theraputic: 0 Delivery Data ([place]) Labor Data Initiation of labor: Spontaneous Induction/Augmentation Agent: None ROM date: 09/08/25 ROM time: 03:37 Amniotic membrane rupture type: Artificial Amniotic fluid description: Clear Delivery Data Onset of labor date: 09/07/25 Onset of labor time: 16:00 Complete dilation date: 09/08/25 Complete dilation time: 08:28 delivery date: 09/08/25 delivery time: 09:00 Placenta delivery date: 09/08/25 Placenta delivery time: 09:05 Delivered by: Mallorie Tay Delivery nurse: KRISTEN Neworn nurse: [email or web address] Postal Carrier at delivery: No Other staff at delivery: Susanna TUCKER RN, [id number] Delivery Method Delivery method: Normal Vaginal Delivery Presentation: Vertex Anesthesia Type Anesthesia Type: Epidural Placenta Placenta delivery description: Spontaneous Cord blood sent to lab: Yes cord blood collection: Cord Blood Type EBL Estimated blood loss (ml): 250 Umbilical Cord cord description: 3 Vessels Additional Procedures Zoe is a 25yo G P s/p uncomplicated at 39&5wk after presenting in active labor, delivering at 0900 on 09/08/2025. On presentation, SCE was 4cm. She progressed without pitocin augmentation and SR OM to C/C/+1 at which point she began pushing. She had received an epidural. With good maternal pushing efforts, infant's head delivered OP and restituted ROP. One loose nuchal cord reduced. Left anterior shoulder delivered easily followed by posterior shoulder and corpus. had spontaneous cry and was vigorous. Apgars 9/9. placed on maternal abdomen where nose/mouth were suctioned and dried/stimulated. After approximately 1 minute, cord was clamped x2 and cut by patient. Cord blood collected for typing. With fundal massage and cord traction, placenta delivered spontaneously and intact with 3 vessel centrally inserted cord. Bimanual massage performed and IV pitocin given per protocol with fundus then firm at u-2cm and hemostasis noted. Inspection of perineum and vagina revealed a 2nd degree midline perineal laceration which was repaired in routine fashion with 3-0 vicryl- total reapproximation and hemostasis achieved. Small trickle of blood, so sweep just within cervix/MONE performed which retrieved a small amount of clot. Cytotec 800mcg MA placed for prophylaxis against future bleeding. All counts correct x2. Mom and infant were doing well when I left the room. Mallorie Tay MD Complications Complications: none [place] Data ([place]) [place] Data order: 1 [place] gender: Male Identification band number: [id number] 1 minute: 9 5 minutes: 9
[2025-09-08] MEDS: IBUPROFEN TAB 400 MG TABLET 800 MG PO (09:51)
[2025-09-08] MEDS: BENZO/LANO/ALOE (Dermoplast) 60 GM CAN 1 SPRAY TOP (09:51)
--- NOTE | 2025-09-08 10:42 | CHAP ---
Mother and baby were visited by the Spiritual Care Volunteer who prayed for them. (Volunteer was in the hospital from 10:07-10:42)
[2025-09-08] MEDS: TRANEXAMIC ACID 1,000 MG IVPB 1,000 MG/100 ML BAG 200 MG IV (11:43)
[2025-09-08 16:07] LABS: Basophils # (Auto) 0.0 Thou/mm3 (0.0-0.2); Basophils % (Auto) 0 % (0-2.5); Eosinophils # (Auto) 0.1 Thou/mm3 (0.0-0.5); Eosinophils % (Auto) 0 % (0-10); Hematocrit 29.7 % (36.0-46.0); Hemoglobin 10.2 g/dL (12.0-16.0); Immature Granulocytes Auto 0.11 Thou/mm3 (0.00-0.00); Lymphocytes # (Auto) 1.5 Thou/mm3 (1.0-4.8); Lymphocytes % (Auto) 9 % (10-50); Mean Corpuscular HGB Conc 34.3 g/dl (31.0-37.0); Mean Corpuscular Hemoglobin 28.6 pg (25.0-35.0); Mean Corpuscular Volume 83 fL (80-100); Monocytes # (Auto) 1.0 Thou/mm3 (0.0-0.8); Monocytes % (Auto) 6 % (0-12); Neutrophils # (Auto) 14.2 Thou/mm3 (1.8-7.7); Neutrophils % (Auto) 84 % (37-80); Nucleated Red Blood Cell # 0.00 Thou/mm3 (0.00-0.00); Nucleated Red Blood Cell % 0 /100 WBC (0); Platelet Count 198 Thou/mm3 (140-440); RDW Standard Deviation 45.1 fL (36.4-46.3); Red Blood Count 3.57 Miln/mm3 (4.00-5.20); White Blood Count 16.9 Thou/mm3 (3.6-11.0)
[2025-09-08] MEDS: DOCUSATE SOD 100 MG CAPSULE PO (23:48)
[2025-09-09 05:21] VITALS: BP 102/69; PULSE 78; RESP 17; TEMP 36.7; O2SAT 98
[2025-09-09 08:00] VITALS: BP 104/59; PULSE 78; RESP 17; TEMP 36.6; O2SAT 98
--- NOTE | 2025-09-09 08:08 | PD.LDDS ---
DS: Providers Provider Date of admission: 09/08/25 01:25 Primary care physician: Physician No Primary/Family Admitting Provider: Mallorie Tay MD Attending Provider on Admission: Kasandra Zamarripa CNM Consults: 09/08/25 09:27 Referral Routine Comment: Attending Provider on DC: Mallorie Tay MD Discharging Provider: Mallorie Tay MD DS: Diagnosis Discharge Diagnosis (1) Normal labor and delivery: Status: Acute Problem List Completed Was Problem List Reviewed/Reconciled?: Yes Summary/Hosp Course Brief History: 25 2 para 1 complains of contractions since 1600. Denies leaking or bleeding. Reports good . Patient had 1 for care. At [facility] OB. First ultrasound of send 8 weeks. PE December 05, 2024. Next due date 09/2025. Social habits. Surgery. Denies chronic illness. Patient is A+, risk negative, RPR reactive, hepatitis B negative, hep C negative, HIV negative current. GBS negative. NIPT and carrier screen. -- Zoe is a 25yo G P s/p uncomplicated at 39&5wk after presenting in active labor, delivering at 0900 on 09/08/2025. She has had an uncomplicated course, meeting all milestones and feels ready for discharge home. She is ambulating without lightheadedness, tolerating regular diet no n/v, spontaneously voiding without issue. She has no chest pain or shortness of breath. No fevers or chills. Minimal, appropriate discomfort. Vitals normal, benign exam. Hemodynamically stable with no evidence of infection. PP Hgb 10.2 from 11.1. Peripartum Data Delivery Method: Normal Vaginal Delivery Status at Discharge Functional status at discharge: independent ambulation Overall status at discharge: patient is back to baseline Time Spent with Patient Time attestation: Total time spent providing and/or coordinating discharge services: Exam Vital Signs Temp Pulse Resp BP Pulse Ox O2 Del Method 98.0 F 78 17 102/69 98 Room Air 09/09/25 05:21 09/09/25 05:21 09/09/25 05:21 09/09/25 05:21 09/09/25 05:21 09/09/25 05:21 Narrative Exam General: well developed, well nourished, no acute distress, conversant Cardiac: normal heart rate Lungs: breathing without distress Abdomen: soft, post-gravid, non-tender, no rebound or guarding, Fundus firm at u-3cm. Extremities: no pain with palpation of calves, trace edema of BLE Discharge Plan Plan Patient Disposition: HOME (Self Care) Patient condition on transfer: Stable Prescriptions/Referrals Prescriptions/Med Rec: New docusate sodium 100 mg Capsule 100 mg PO BID 10 Days Qty: 20 0RF ibuprofen 800 mg tablet 800 mg PO Q8H PRN (Reason: See Comments) 10 Days Qty: 20 0RF Referrals: No Primary/Family,Physician [Primary Care Provider] Patient/Caregiver Discharge Instructions Discharge Activity: activity as tolerated and other Other Discharge Activity Instructions:: vaginal rest and no heavy lifting more than 10 pounds for 6 weeks Other Discharge Diet Instructions: regular Education Materials: After a Vaginal Print Language: Nigerian Activity Restrictions/Additional Instructions: follow up with RUDDY Zamarripa in 4 to 6 weeks for visit, call clinic to schedule Stand Alone Forms: [employer] Info., Patient Portal Info Letter Discharge Order Discharge Orders: Discharge (Routine); Ordered 09/09/25 Ordered By: Mallorie Tay Planned Discharge Date 09/09/25
[2025-09-09] MEDS: DOCUSATE SOD 100 MG CAPSULE PO (08:46)
== END 2025-09-09 13:44 | disposition home or self-care (01) | DRG 560 ==
LOC: S4SX 09-08 09:43 → S4NX 09-08 11:26
PROVIDERS: Admitting Provider Obstetrics & Gynecology; Visit Provider Advanced Practice Midwife
DX: O69.81X0 Labor and delivery complicated by cord around neck, without compression, not applicable or unspecified (principal); O70.1 Second degree perineal laceration during delivery; Z3A.39 39 weeks gestation of pregnancy; Z37.0 Single live birth
CPT/HCPCS: 36415; 59025; 59409; 85025; 86780; 86850; 86900; 86901; 94762; G0378; J2590; J2795; J3010; J3490; J7120; S0191; A9270